=== PATIENT | female | born 1940 | race Caucasian/White ===

== ENCOUNTER 2018-10-01 12:28 | Emergency (ER) | payer MEDICARE ==
[~2018-10-01] VITALS: Ht 147.3 cm; Wt 59.1 kg
--- NOTE | 2018-10-01 12:48 | NUR ---
DR MARSHALL AT BEDSIDE FOR EVALUATION, STROKE CALLED OFF BY DIANA CHACKO INFORMED.
[2018-10-01 13:06] LABS: BASOPHILS % (AUTO) 0.6 % (0-1); EOSINOPHILS # (AUTO) 0.1 X10'3 (0-0.9); EOSINOPHILS % (AUTO) 1.7 % (0-6); HEMATOCRIT 33.4 % (35.0-45.0); HEMOGLOBIN 11.2 g/dl (12.0-16.0); LYMPHOCYTES # (AUTO) 1.5 X10'3 (1.1-4.8); MEAN CORPUSCULAR HEMOGLOBIN 29.7 PG (27.0-31.0); MEAN CORPUSCULAR HGB CONC 33.5 g/dL (33.0-36.5); MEAN CORPUSCULAR VOLUME 88.8 FL (78-98); MEAN PLATELET VOLUME 7.8 FL (7.4-10.4); MONOCYTES # (AUTO) 0.7 X10'3 (0-0.9); MONOCYTES % (AUTO) 8.1 % (2-12); NEUTROPHILS # (AUTO) 5.8 X10'3 (1.8-7.7); NEUTROPHILS % (AUTO) 71.6 % (42-75); PLATELET COUNT 264 X10'3 (140-440); RED BLOOD COUNT 3.76 X10'6 (4.20-5.60); RED CELL DISTRIBUTION WIDTH 11.9 % (11.5-14.5); WHITE BLOOD COUNT 8.1 X10'3 (4.5-11.0)
[2018-10-01 13:18] LABS: PARTIAL THROMBOPLASTIN TIME 26 SECONDS (22-32)
[2018-10-01] MEDS ORDERED: HYDR25TA4 PO (13:21)
[2018-10-01] MEDS ORDERED: CITA10TA9 PO (13:21)
[2018-10-01] MEDS ORDERED: LISI10TA4 PO (13:21)
[2018-10-01] MEDS ORDERED: GLIM2TAB2 PO (13:21)
[2018-10-01 13:22] LABS: ALANINE AMINOTRANSFERASE 18 U/L (12-78); ALBUMIN/GLOBULIN RATIO 1.1 (1.1-1.5); ALKALINE PHOSPHATASE 79 IU/L (46-116); ANION GAP 7 (8-16); ASPARTATE AMINO TRANSFERASE 13 U/L (10-37); BILIRUBIN,TOTAL 0.4 MG/DL (0.1-1.0); BLOOD UREA NITROGEN 29 MG/DL (7-18); BUN/CREATININE RATIO 19.9 (6.6-38.0); CALCIUM 9.6 MG/DL (8.5-10.1); CHLORIDE 102 MMOL/L (99-107); CREATININE 1.46 MG/DL (0.40-0.90); GLUCOSE 107 MG/DL (70-104); POTASSIUM 3.9 MMOL/L (3.5-5.1); SODIUM 139 MMOL/L (135-145); TOTAL CARBON DIOXIDE 30.4 MMOL/L (24-32); TOTAL PROTEIN 7.6 G/DL (6.4-8.2); eGFR 35 ML/MIN
--- NOTE | 2018-10-01 13:27 | NUR ---
DR MARSHALL IN PROCEDURE, RECIEVED VERBAL ORDER FOR 1 LITER BOLUS NS.
[2018-10-01 13:29] LABS: MAGNESIUM 1.7 MG/DL (1.5-2.4)
[2018-10-01] MEDS ORDERED: normal saline 1000ml 1,000 ML IV ONE (13:30)
[2018-10-01 13:32] LABS: TROPONIN I < 0.04 NG/ML (0.0-0.05)
[2018-10-01] MEDS ORDERED: normal saline 1000ML IV soln IVB ONE (14:10)
[2018-10-01 15:22] LABS: CLARITY,URINE SLIGHTLY CLOUDY (Clear); COLOR,URINE YELLOW (Yellow); GLUCOSE, URINE NEGATIVE (Neg); KETONES,URINE NEGATIVE (Neg); LEUKOCYTE ESTERASE ,URINE SMALL (Neg); NITRITES, URINE POSITIVE (Neg); OCCULT BLOOD,URINE NEGATIVE (Neg); PROTEIN,URINE NEGATIVE (Neg); UROBILINOGEN,URINE 0.2 E.U/dL (0.2-1.0)
[2018-10-01 15:34] LABS: UA COLLECTION TYPE STRAIGHT CATH
[2018-10-01 15:36] LABS: BACTERIA,URINE 4+ /HPF (Neg); RBC,URINE 0-2 /HPF (0-2); WBC,URINE 30-50 /HPF (0-4)
[2018-10-01 15:37] LABS: SQUAMOUS EPITHELIAL CELL,UR FEW /LPF (FEW); WBC CLUMPS,URINE FEW /HPF (NEGATIVE)
[2018-10-01] MEDS ORDERED: CEPH500C5 PO (15:39)
[2018-10-01] MEDS ORDERED: CefTRIAXone 2gm/D5W 50ml 50 ML IV ONE (15:40)
[2018-10-01 17:01] VITALS: BP 162/88
== END 2018-10-01 17:05 | disposition home or self-care (01) ==
LOC: ER 12:28
DX: N39.0 Urinary tract infection, site not specified (principal); E86.0 Dehydration; E11.9 Type 2 diabetes mellitus without complications; Z98.51 Tubal ligation status
CPT/HCPCS: 36415; 71045; 80053; 81001; 82948; 83735; 83880; 84484; 85025; 85610; 85730; 87077; 87088; 87186; 93005; 96361; 96365; 99284; J0696; J7030; P9612